=== PATIENT | female | born 1990 | race Caucasian/White ===

== ENCOUNTER → 2018-02-01 16:15 | Outpatient (REF) | payer SELFPAY | LOC: LAB 16:15 | PROVIDERS: Visit Provider Nurse Practitioner Obstetrics & Gynecology | DX: Z34.90 Encounter for supervision of normal pregnancy, unspecified, unspecified trimester (principal) | CPT/HCPCS: 86403 ==

== ENCOUNTER → 2018-02-15 13:53 | Outpatient (CLI) | payer SELFPAY ==
[2018-02-15 14:24] LABS: Basophils % 0.2 % (0.1-2.0); Eosinophils # 0.1 K/mm3 (0.0-0.4); Eosinophils % 1.4 % (0.1-12.0); Hematocrit 42.6 % (37.0-47.0); Hemoglobin 14.3 g/dL (12.2-16.2); Lymphocytes # 1.8 K/mm3 (0.7-4.5); Lymphocytes % 24.3 K/mm3 (10-50); Mean Corpuscular HGB Conc 33.5 g/dL (31.8-35.4); Mean Corpuscular Hemoglobin 32.5 pg (27.0-31.2); Mean Corpuscular Volume 96.8 fl (81-99); Mean Platelet Volume 9.2 fl (7.4-10.4); Monocytes # 0.4 K/mm3 (0.1-1.0); Monocytes % 5.3 % (1.7-9.3); Neutrophils # 5.1 K/mm3 (1.8-7.8); Neutrophils % 68.9 % (37.0-80.0); Platelet Count 135 K/mm3 (142-424); Red Cell Distribution Width 14.2 % (11.5-17.5); White Blood Count 7.4 K/mm3 (4.8-10.8)
[2018-02-15 17:17] LABS: Anion Gap 14.1 mEq/L (5-15); Blood Urea Nitrogen 9 mg/dL (7-18); Calcium 8.1 mg/dL (8.5-10.1); Carbon Dioxide 22 mmol/L (21.0-32.0); Chloride 106 mmol/L (98-107); Creatinine,Serum 0.44 mg/dL (0.55-1.02); Estimated Glomerular Filt Rate 169 ml/min (>60); GFR (African American) 205 ML/MIN (>60); Glucose 82 mg/dL (74-106); Potassium 4.1 mmoL/L (3.5-5.1); Sodium 138 mmol/L (136-145)
== END ==
PROVIDERS: Visit Provider Nurse Practitioner Obstetrics & Gynecology
DX: Z34.90 Encounter for supervision of normal pregnancy, unspecified, unspecified trimester (principal)
CPT/HCPCS: 36415; 80048; 85025

== ENCOUNTER → 2018-02-17 10:27 | Outpatient (CLI) | payer SELFPAY | PROVIDERS: Visit Provider Nurse Practitioner Obstetrics & Gynecology | DX: D69.6 Thrombocytopenia, unspecified (principal) | CPT/HCPCS: 36415; 86850; 86870 ==

== ENCOUNTER 2018-02-19 05:33 | Inpatient (IN) ==
[2018-02-19 06:18] LABS: Basophils % 0.4 % (0.1-2.0); Eosinophils # 0.2 K/mm3 (0.0-0.4); Eosinophils % 2.4 % (0.1-12.0); Hematocrit 39.8 % (37.0-47.0); Hemoglobin 14.5 g/dL (12.2-16.2); Lymphocytes # 2.2 K/mm3 (0.7-4.5); Lymphocytes % 30.3 K/mm3 (10-50); Mean Corpuscular HGB Conc 36.5 g/dL (31.8-35.4); Mean Corpuscular Hemoglobin 35.8 pg (27.0-31.2); Mean Corpuscular Volume 98.2 fl (81-99); Monocytes # 0.5 K/mm3 (0.1-1.0); Neutrophils # 4.2 K/mm3 (1.8-7.8); Neutrophils % 59.9 % (37.0-80.0); Platelet Count 106 K/mm3 (142-424); Red Blood Count 4.06 M/mm3 (4.20-5.40); Red Cell Distribution Width 14.1 % (11.5-17.5); White Blood Count 7.1 K/mm3 (4.8-10.8)
[2018-02-19 06:30] LABS: Calcium 8.2 mg/dL (8.5-10.1)
--- NOTE | 2018-02-19 08:40 | Operative Note ---
Date of procedure: 02/19/18 Pre-op Diagnosis:: Term , previous section, desire for sterilization Post-op Diagnosis:: Term , previous section, desire for sterilization Procedure performed:: Repeat lower segment transverse section and bilateral salpingectomy Surgeon:: Gaurang Lester MD Sewing Machinist(s):: Dr. Menchaca SINKER PULLER:: Darien Momin Anesthesia: spinal Estimated blood loss (mL): 600 Clinical Note:: She is a 27-year-old 6 para 4 aborta 1 who is 37+ weeks gestational age. She has had 4 previous sections and as result of that was offered repeat lower segment transverse section at term. We had consulted with [facility] because we were worried about possible accreta given her previous history of multiple sections. They did not feel that accreta but suggested that she deliver at 37 weeks regardless. She also expressed desire for sterilization. The risks and benefits of surgery as well as the irreversibility of bilateral salpingectomy were discussed with the patient prior to surgery. Operative findings:: She delivered a liveborn male child at 7:58 AM on the morning of February 19, 2018. The baby had Apgars of 9 at 1 minute and 9 at 5 minutes. The pH was 7.36. Tubes and ovaries appeared normal. Operative note:: She was taken to the operating room where spinal anesthesia was found be adequate. She was prepped and draped in normal sterile fashion in the supine position with a leftward tilt. A Bhatti catheter was in the bladder. A Pfannenstiel skin incision was made with knife then carried through to the underlying layer of fascia with cautery. The fascia was opened in the midline with cautery and extended laterally using Hinojosa scissors. Mumford clamps were applied to the superior aspect of the fascial incision which was tented up and the underlying rectus muscles dissected off using cautery. The Mario clamps were then applied to the inferior aspect of the fascial incision which in a similar fashion was tented up and the underlying rectus muscles dissected off using cautery. The rectus muscles were then in the midline, the peritoneum identified, and entered sharply with Metzenbaum scissors. This incision was then extended superiorly and inferiorly with cautery. We had good visualization of the bladder inferiorly. The bladder peritoneum was then opened in the midline and extended laterally using Metzenbaum scissors. A bladder flap was created digitally. The lower blade of the [place] was inserted so as to push the bladder out of the way. Transverse incision was made through the uterine muscle to the amnion. This incision was then extended laterally using fingers traction. The amnion was entered sharply with knife. Clear fluid was seen to flow. The infant's head was then delivered atraumatically. This was followed by the anterior shoulder and the rest of the infant's body atraumatically. The oropharynx and nasopharynx were bulb suctioned. The was then handed off to Dr. rivas who assigned Apgars of 9 at 1 minute and 9 at 5 minutes. We then obtained cord blood as well as cord pH. PH was 7.36. Using gentle traction on the cord and countertraction on the fundus I was able to easily deliver the placenta intact. It had a normal three-vessel cord. The uterus was then cleared of clots and debris and exteriorized from the abdominal cavity. The uterine incision was then closed using running 0 Vicryl suture in a locked fashion. A second layer of the same suture was used to imbricate the first layer. The bladder peritoneum was then closed using running 2-0 Vicryl suture in a locked fashion. We then turned our attention to her bilateral salpingectomy. The distal end of the right tube was grasped and using cautery I cauterized along the mesosalpinx. I then clamped across the proximal tube and cut the tube away. This was then tied with a free tie. This was similar performed on the patient's left side although there was slightly more bleeding along the distal end of the tube and I used hemostats with free ties here to obtain excellent hemostasis. The gutters and cul-de-sac were then cleared of clots and debris and the uterus was returned the abdominal cavity. Once again hemostasis was assured. The peritoneum and fascia were grasped with Bhavya clamps and closed using running 0 Vicryl suture. The fascia was closed using running #1 Vicryl suture. The subcutaneous tissues were then irrigated with warm water followed by closure Rebecca's fascia using running 2-0 Monocryl suture. The skin was closed with pardeep. I then cleaned the incision twice with Hibiclens. Sterile dressings were applied. She tolerated the procedure well and was taken to the recovery room in excellent condition. All sponges minute and needle counts were correct. Estimate a blood loss was approximately 600 mL. Condition: stable Disposition: PACU Specimens:: Bilateral fallopian tubes Complications:: None
--- NOTE | 2018-02-19 08:44 | Progress Note ---
[facility] Anesthesia Checklist - Patient Identification Patient Identification: Arm Band, Verbal (Name & ) - Structural Data Admitted From: Home Planned Operative Procedure/s: c section Consent for Planned Operative Procedure(s) Verified: Yes Verified Documents: Surgical Consent, History and Physical - NPO Status Verified Time NPO: 00:00 - Additional verifications Patient : Yes Anesthesia Reactions: No Hx Blood Transfusions: No Blood Transfusion Reaction: No Cephalosporin Allergy: No Previous Colonoscopy: No - Cardiovascular Assessment Heart Sounds: S1 & S2 Pulse Strength: Baseline Pulse Rhythm: Regular Peripheral Edema: Yes - Airway Assessment C-Spine Mobility Assessed: Yes TMJ Mobility Assessed: Yes Dentition: Good Dentition - Neurological Assessment Level of Consciousness: Awake, Alert, Appropriate Hx Seizures: No Numbness or tingling in extremities: No - Anesthesia Plan Anesthesia Risk discussed: Yes Anesthesia Plan: Verified ASA Class: II Anesthesia Type: Spinal [facility] Anesthesia HX I have reviewed the patient's past medical history: Yes Medical History: Denies:: Cancer, Migraine Other Surgeries: Yes: Amputation: No Fractures: No *Family Hx:: Unable to obtain
--- NOTE | 2018-02-19 08:45 | Progress Note ---
[facility] Anesthesia Record Part I Intake, IV Amount: 2,000 Estimated blood loss (mL): 600 Urine output (mL): 450 Blood Products used (#): none Blood Pressure: 112/72 SaO2: 97 Pulse Rate: 73 Respiratory Rate: 18 Temperature: 97.8 F Patient is:: Awake Stable to PACU at:: 08:40
--- NOTE | 2018-02-19 08:45 | Progress Note ---
[facility] Anesthesia Record Part II Discharge Time: 09:10 Destination: Obstetric Gynecology Dept PACU nurse assessment reviewed?: Yes Patient Condition:: Good Anesthesia Complications:: None
--- NOTE | 2018-02-19 14:51 | Progress Note ---
Internal Medicine - PN: Subj *Date: 02/19/18 *Time: 14:47 Interval history: She has had a significant amount of bleeding since her surgery vaginally. She has soaked through a couple of checks. I saw her before noon and got about 250 cc of clots from the inside of her uterus. Since that time she has been doing well and then we left her alone for about 40 minutes and she started having more clots and soaked through another pad. As result of this I have put a bAKRI balloon inside the lining of the uterus. When I examined her there was a few clots in the uterus but not as many as there were when I first saw her at noon. She has 4 units of blood that were crossmatch prior to her surgery because of her history of 4 previous sections. At this point in time she is stable and her vitals are stable. We will get a stat H&H and if she has dropped her hemoglobin we will go ahead and give her 2 units of blood. Exam Vital signs and Labs for Last 24 Hours: Temp Pulse Resp BP Pulse Ox 97.5 F L 58 L 18 105/55 100 02/19/18 09:10 02/19/18 09:10 02/19/18 09:10 02/19/18 09:10 02/19/18 09:10 Laboratory Results - last 24 hr 02/19/18 06:05: WBC 7.1, RBC 4.06 L, Hgb 14.5, Hct 39.8, MCV 98.2, MCH 35.8 H, MCHC 36.5 H, RDW 14.1, Plt Count 106 L, MPV 9.0, Neut % (Auto) 59.9, Lymph % ( Auto) 30.3, [place] % (Auto) 7.0, Eos % (Auto) 2.4, Baso % (Auto) 0.4, Neut # (Auto ) 4.2, Lymph # (Auto) 2.2, [place] # (Auto) 0.5, Eos # (Auto) 0.2, Baso # (Auto) 0.0 02/19/18 06:05: Sodium 141, Potassium 4.0, Chloride 108 H, Carbon Dioxide 25, Anion Gap 12.0, BUN 7, Creatinine 0.56, Estimated Creat Clear 163, Estimated GFR 128, Est GFR ( Amer) 155, Glucose 80, Calcium 8.2 L 02/19/18 07:45: Urine Color Yellow, Urine Appearance Clear, Urine pH 6.5, Ur Specific [place] <= 1.005, Urine Protein Negative, Urine Glucose (UA) Negative, Urine Ketones Negative, Urine Blood Negative, Urine Nitrate Negative, Urine Bilirubin Negative, Urine Urobilinogen 0.2, Ur Leukocyte Esterase Negative, Urine WBC Occasional, Ur Squamous Epith Cells Occasional, Urine Bacteria 1+ 02/19/18 08:07: Cord ABG pH 7.36 I & O for Last 24 hours: Intake & Output 02/17/18 02/18/18 02/19/18 02/20/18 11:59 11:59 11:59 11:59 Intake Total 1999 Balance 1999 Weight 153 lb 15.992 oz - Constitutional no acute distress Assessment and Plan (1) Previous section Problem details: x4 Current visit: No Status: Acute Category: Surgical Code(s): Z98.891 - History of uterine scar from previous surgery - Assessment and plan all Dx Assessment and Plan for all problems:: She has lost more than 500 cc of blood since her surgery. We will get a stat H& H and then give her 2 units of blood that she has on hold. I have inserted a balloon catheter into the lining of the uterus. We will leave this in overnight.
[2018-02-19 15:22] LABS: Hematocrit 39.3 % (37.0-47.0); Hemoglobin 12.9 g/dL (12.2-16.2)
--- NOTE | 2018-02-19 17:37 | History & Physical Report ---
OB - H&P: HPI Antepartum - History of Present Illness Chief complaint: Term , previous sections History of present illness: She is a 27-year-old 6 para 4 aborta 1 who is 3 7 and 3 weeks gestational age. She has had 4 previous sections and as result of that is here for repeat section. She also expressed desire for sterilization. She was seen in consultation by [facility] who felt that she should be delivered by 37 weeks given her past history of sections. We were concerned about consent accreta but investigations to this point have been negative. - History of Present Criteria for establishing EDC:: LMP confirmed by 1st trimester US care: good care Ultrasounds: normal 1st trimester US, normal mid trimester US Obstetrical complications: none Medical complications: none [facility] History I have reviewed the patient's past medical history: Yes Medical History: Reports:: Kidney Stones Denies:: Cancer, Migraine, Seizures Other Medical History: Denies: Blood Transfusion Reaction Other Surgeries: Yes: Amputation: No Fractures: No - *Social History Smoking Status: Never smoker Alcohol Intake: never Substance Use Type: denies use *Family Hx:: Unable to obtain ALGEBRAIST history: Spontaneous Para: 4 Review of Systems - Review of Systems Review of systems:: pertinent systems reviewed and negative unless documented below Meds Home Medications Medication Instructions Recorded Confirmed Type pediatric multivitamin no.76 1 tab PO QDAY 09/11/17 History chewable tablet ferrous sulfate 325 mg (65 mg 325 mg PO DAILY tab 01/03/18 History iron) tablet Allergies Allergy/AdvReac Type Severity Reaction Status Date / Time No Known Allergies Allergy Verified 02/15/18 14:25 OB - H&P: Exam - Physical Exam Vital signs: Temp Pulse Resp BP Pulse Ox 97.5 F L 58 L 18 105/55 100 02/19/18 09:10 02/19/18 09:10 02/19/18 09:10 02/19/18 09:10 02/19/18 09:10 - Constitutional no acute distress - Routine HEENT Exam Head: Present: normocephalic - Routine Neck Exam Present: supple - Routine Respiratory Exam Comments: Normal breath sounds - Routine Cardiovascular Exam Present: RRR OB - Results - Labs Labs: Short CBC 02/19/18 02/19/18 Range/Units 06:05 15:00 WBC 7.1 (4.8-10.8) K/mm3 Hgb 14.5 12.9 D (12.2-16.2) g/dL Hct 39.8 39.3 (37.0-47.0) % Plt Count 106 L (142-424) K/mm3 BMP 02/19/18 06:05 Sodium 141 Potassium 4.0 Chloride 108 H Carbon Dioxide 25 BUN 7 Creatinine 0.56 Glucose 80 Calcium 8.2 L Urine 02/19/18 Range/Units 07:45 Urine Color Yellow (Yellow) Urine Appearance Clear (Clear) Urine pH 6.5 (5.0-8.5) Ur Specific [place] <= 1.005 (1.005-1.030) Urine Protein Negative (Negative) Urine Glucose (UA) Negative (Negative) OB - A/P Antepartum (1) Previous section Problem details: x4 Current visit: No Status: Acute - Additional Plan Planning to breastfeed?: Yes Additional Information:: She is here for a repeat lower segment transverse section and bilateral salpingectomy.
[2018-02-20 06:25] LABS: Basophils % 0.2 % (0.1-2.0); Eosinophils # 0.1 K/mm3 (0.0-0.4); Eosinophils % 0.6 % (0.1-12.0); Hematocrit 35.6 % (37.0-47.0); Hemoglobin 11.7 g/dL (12.2-16.2); Lymphocytes # 1.1 K/mm3 (0.7-4.5); Lymphocytes % 13.6 K/mm3 (10-50); Mean Corpuscular HGB Conc 32.8 g/dL (31.8-35.4); Mean Corpuscular Hemoglobin 32.3 pg (27.0-31.2); Mean Corpuscular Volume 98.5 fl (81-99); Mean Platelet Volume 9.5 fl (7.4-10.4); Monocytes # 0.5 K/mm3 (0.1-1.0); Monocytes % 6.2 % (1.7-9.3); Neutrophils # 6.1 K/mm3 (1.8-7.8); Neutrophils % 79.3 % (37.0-80.0); Platelet Count 106 K/mm3 (142-424); Red Blood Count 3.61 M/mm3 (4.20-5.40); Red Cell Distribution Width 14.3 % (11.5-17.5); White Blood Count 7.7 K/mm3 (4.8-10.8)
--- NOTE | 2018-02-20 07:44 | Pharmacy Consult Notes ---
[facility] VTE Monitoring - Patient Demographics Admission date: 02/19/18 Report Date: 02/20/18 Time: 07:44 Allergies/Adverse Reactions: Patient Allergies No Known Allergies Allergy (Verified 02/15/18 14:25) Height: 1.52 m Weight: 69.853 kg - VTE Risk Labs: VTE Related Lab Results Hgb 11.7 g/dL (12.2-16.2) L 02/20/18 06:06 Hct 35.6 % (37.0-47.0) L 02/20/18 06:06 Plt Count 106 K/mm3 (142-424) L 02/20/18 06:06 BUN 7 mg/dL (7-18) 02/19/18 06:05 Creatinine 0.56 mg/dL (0.55-1.02) 02/19/18 06:05 Estimated Creat Clear 163 mL/min (0-300) 02/19/18 06:05 - Prophylaxis VTE Prophylaxis Ordered?: Yes Types of VTE Prophylaxis: IPCS Knee High Location of Applied Device: Bilateral Lower Extremeties - VTE Diagnosis Confirmed Treatment or plan recommended: Continue Current Treatment
--- NOTE | 2018-02-20 08:09 | Progress Note ---
Internal Medicine - PN: Subj *Date: 02/20/18 *Time: 08:07 Interval history: She continues to do well. She is eating and drinking and ambulating. Her pain is well controlled. She is breast-feeding. Her balloon catheter was removed this morning. She has had about 40 cc of blood loss in the catheter overnight. Exam Vital signs and Labs for Last 24 Hours: Temp Pulse Resp BP Pulse Ox 97.5 F L 58 L 18 105/55 100 02/19/18 09:10 02/19/18 09:10 02/19/18 09:10 02/19/18 09:10 02/19/18 09:10 Laboratory Results - last 24 hr 02/19/18 07:45: Urine Color Yellow, Urine Appearance Clear, Urine pH 6.5, Ur Specific [place] <= 1.005, Urine Protein Negative, Urine Glucose (UA) Negative, Urine Ketones Negative, Urine Blood Negative, Urine Nitrate Negative, Urine Bilirubin Negative, Urine Urobilinogen 0.2, Ur Leukocyte Esterase Negative, Urine WBC Occasional, Ur Squamous Epith Cells Occasional, Urine Bacteria 1+ 02/19/18 08:07: Cord ABG pH 7.36 02/19/18 15:00: Hgb 12.9 D, Hct 39.3 02/20/18 06:06: WBC 7.7, RBC 3.61 L, Hgb 11.7 L, Hct 35.6 L, MCV 98.5, MCH 32.3 H, MCHC 32.8, RDW 14.3, Plt Count 106 L, MPV 9.5, Neut % (Auto) 79.3, Lymph % ( Auto) 13.6, [place] % (Auto) 6.2, Eos % (Auto) 0.6, Baso % (Auto) 0.2, Neut # (Auto ) 6.1, Lymph # (Auto) 1.1, [place] # (Auto) 0.5, Eos # (Auto) 0.1, Baso # (Auto) 0.0 I & O for Last 24 hours: Intake & Output 02/17/18 02/18/18 02/19/18 02/20/18 11:59 11:59 11:59 11:59 Intake Total 1999 / 1999 Output Total 250 / 250 Balance 1750 / 1750 Weight 153 lb 15.992 oz 153 lb 15.992 oz - Constitutional no acute distress Assessment and Plan (1) Previous section Problem details: x4 Current visit: No Status: Acute Category: Surgical Code(s): Z98.891 - History of uterine scar from previous surgery (2) tubal ligation planned Current visit: No Status: Acute Category: Medical - Assessment and plan all Dx Assessment and Plan for all problems:: She is doing well her bleeding has resolved. I removed her balloon catheter from the uterus this morning. There was about 40 cc of blood loss total overnight. We will plan to send her home tomorrow.
--- NOTE | 2018-02-21 08:22 | Discharge Summary ---
General - General Admission date:: 02/19/18 Discharge date: 02/21/18 HPI HPI: She is a 27-year-old 6 now para 5 aborta 1 who is 37 weeks gestation. She has had 4 previous sections and we were concerned about placenta accreta. She was however seen in consultation and it was not felt that she had accreta. But given her past history of 4 sections it was recommended by [facility] that she goes ahead with a section at 37 weeks. She also expressed desire for sterilization given the fact that she has had so many sections. Hospital Course Hospital Course: On February 19, 2018 she delivered by section a liveborn male child at 7:58 AM. The baby had Apgars of 9 at 1 minute and 9 at 5 minutes. She initially did well but began having some bleeding so I elected to place a balloon catheter within the uterine cavity and this was kept in overnight. She subsequently has had no further episodes of heavy bleeding. Her hemoglobin is stable. She has a Rh- blood and she did refuse the RhoGam. She is on mesh. She has group B Streptococcus negative and is rubella nonimmune. She is discharged home to follow-up with me in approximately 2 weeks time. She has had her pardeep removed and Steri-Strips applied. She will continue with her vitamins and iron. She was given the usual instructions with respect to limiting her activity, driving and sexual activity. Objective Vital signs: Temp Pulse Resp BP Pulse Ox 97.5 F L 58 L 18 105/55 100 02/19/18 09:10 02/19/18 09:10 02/19/18 09:10 02/19/18 09:10 02/19/18 09:10 no acute distress - *Routine Abdominal Exam Present: soft, surgical scars Comments: Her incision is clean and dry. DS: Diagnosis - Discharge Diagnosis (1) Previous section Status: Acute Problem details: x4 (2) tubal ligation planned Status: Acute Discharge Plan - Patient Discharge Instructions ACTIVITY: No heavy lifting DIET: continue same diet - Follow up Plan Disposition: Home, Self-Fpc Medications: Home Medications Medication Instructions Recorded Confirmed Type pediatric multivitamin no.76 1 tab PO QDAY 09/11/17 History chewable tablet ferrous sulfate 325 mg (65 mg 325 mg PO DAILY tab 01/03/18 History iron) tablet Prescriptions/Medication Reconciliation: Continue ferrous sulfate 325 mg (65 mg iron) tablet 325 mg PO DAILY tab pediatric multivitamin no.76 chewable tablet 1 tab PO QDAY
== END 2018-02-21 10:55 | disposition home or self-care (01) ==
LOC: OB 05:33
PROVIDERS: ADMIT Obstetrics & Gynecology; ATTEND Nurse Practitioner Obstetrics & Gynecology

== ENCOUNTER → 2018-02-23 12:40 | Outpatient (CLI) | payer SELFPAY | PROVIDERS: Visit Provider Nurse Practitioner Obstetrics & Gynecology | DX: O89.4 Spinal and epidural anesthesia-induced headache during the puerperium (principal) | CPT/HCPCS: 62273 ==

== ENCOUNTER → 2018-06-18 15:30 | Outpatient (CLI) | payer SELFPAY ==
--- NOTE | 2018-06-18 15:34 | XR_ITS ---
XR foot RT min 3V HISTORY: ITS.REASON: RT FOOT PAIN ORDERING PHYSICIAN: Anali Bynum PATIENT AGE: 27 years FINDINGS: No fracture or dislocation. No lytic or blastic change. There is normal mineralization.. The joint spaces are well-preserved. No significant degenerative/arthritic changes. No erosive changes evident. IMPRESSION: Negative, no acute finding
== END ==
PROVIDERS: PCP Nurse Practitioner Family; Visit Provider Nurse Practitioner Family
DX: M79.671 Pain in right foot (principal)
CPT/HCPCS: 73630